=== PATIENT | male | born 1965 | race Caucasian/White ===

== ENCOUNTER 2016-12-09 21:15 | Emergency (ER) | payer OTHER ==
[~2016-12-09] VITALS: Ht 182.2 cm; Wt 104.5 kg
[2016-12-09 21:17] VITALS: BP 133/75; PULSE 97; O2SAT 97
--- NOTE | 2016-12-09 21:45 | ED.REPORT ---
HPI-Allergic Reaction Date of Service Dec 09, 2016 ED Provider: Jovany Lynn DO A 51 year old male with no pertinent medical history presents to the ED following a bee sting to the left lower extremity that occurred yesterday but become increasingly painful 4 hours prior to arrival. The patient states that he was stung by a bee yesterday afternoon and since onset the area has become increasingly swollen, red and painful with clear drainage. The patient has been taking ibuprofen and Bendaryl intermittently with no relief. Last dose of Benadryl was 5 hours prior to arrival. He denies any similar reactions previously. Patient denies any recent angioedema, difficulty swallowing, difficulty speaking, throat swelling, diffuse rash or vomiting. Nursing Notes Stated Complaint: BEE STING, ALLERGIC REACTION Chief Complaint: Allergic Reaction Nursing Notes Reviewed: Yes Allergies: Coded Allergies: Sulfa (Sulfonamide Antibiotics) (Verified Allergy, Unknown, hives, 12/09/16 ) Scheduled Cetirizine HCl (Zyrtec) 10 Mg Capsule 10 MG PO DAILY Doxycycline Hyclate (Doxycycline Hyclate) 100 Mg Capsule 100 MG PO BID Famotidine (Pepcid) 40 Mg Tablet 40 MG PO DAILY Prednisone (PredniSONE) 20 Mg Tablet 40 MG PO DAILY General Time Seen by MD: 21:38 Chief Complaint Allergic reaction Hx Obtained From: Patient Arrived By: Walk-in Onset Occurred: Yesterday Context of Onset: Insect bite/sting Symptom Duration: Since onset Progression Since Onset: Gradually worsening Location: : Leg left Quality: Painful Severity: Current: Mild Severity: Maximum: Moderate Associated with: Denies: Difficulty speaking, Difficulty swallowing, Throat swollen, Vomiting Pertinent Negative: Pt denies other symptoms Recent Healthcare: No recent doctor visit, No recent hospitalization Similar Sx Previous: No Past Medical History Past Medical History Varicose veins Past Surgical History None reported. Smoking History Never Smoker Social History Other Social History: Good social support, Local resident Ambulatory Status Independent Review of Systems Denies difficulty speaking Denies angioedema + red, swollen, painful blister to LLE Ears / Nose / Throat: Denies: Throat swelling Respiratory: Denies: Shortness of breath GI: Denies: Vomiting Skin: Denies Rash Complete sys rev & neg: except as marked. Physical Exam Initial Vital Signs Vital Signs (First) Date Time Temp Pulse Resp B/P Pulse Ox O2 Delivery O2 Flow Rate FiO2 12/09/16 21:17 37.0 97 133/75 97 Initial VS: Reviewed Neck: Supple, Non-tender, Full range of motion Extremities: Vascular intact, Neuro intact, No swelling, No tenderness Neurologic: Alert, Oriented, Nonfocal Psychiatric: Mood/affect normal, Behavior normal, Normal thought content General/Constitutional: Awake, Alert, No acute distress, Well appearing Respiratory / Chest: Atraumatic, Breath sounds NL, Breath sounds = bilat, No respiratory distress Cardiovascular: Heart rate NL, Regular rhythm, Heart sounds NL Skin: Atraumatic, Warm, Dry BLISTER: 15cm area of mild warmth and mild erythema to the posterior left lower extremity. 3cm x 2 cm area of blistering present to the posterior left calf. Head / Eyes: Atraumatic, Normocephalic, PERRL ENT: Atraumatic, Airway patent, Mucous membranes moist, Pharynx NL Mouth: Negative: Angioedema present..., Lip swelling present, Tongue abnormal Abdomen: Atraumatic, Soft Re-Eval/Medical Decision Med Decision/Clinical Course Localized allergic reaction without signs of overt cellulitis or anaphylaxis at this time however given his clinical history he'll be started on doxycycline for prophylaxis of cellulitis and given an EpiPen as well as prednisone, Pepcid, Zyrtec and [id number] Benadryl. Return precautions given. Re-Evaluation/Progress : Time of Eval: 22:10 Re-Evaluation/Progress Note: The patient is informed of his reassuring examination. He is agreeable to discharge with presciptions to help control swelling, redness and pain. Requests Epi Pain in case of severe allergic reaction. Counseled Regarding: Diagnosis, Lab results, Need for follow-up, When/why to return to ED Discharge & Departure Primary Impression: Allergic reaction Encounter type: initial encounter Qualified Code: T78.40XA - Allergy, unspecified, initial encounter Disposition: Home Discharge Condition All VS Reviewed: Yes Condition: Improved Patient Instructions: General Allergic Reaction (ED) Additional Instructions: Thank you for trusting us with your care this evening. Your emergency department evaluation today is reassuring that there is no emergent cause for concern at this time and I believe your symptoms are due to an allergic reaction. Take the full course of doxycycline as directed. Take prednisone as directed for the next 5 days. Take Zertec as directed to help reduce the inflammation to the area. Apply Benadryl cream to the affected area as directed. Use Epi pen if you begin to experience any difficulty breathing, vomiting, passing out or significant swelling in your throat. Schedule a follow up appointment with your primary care physician in the next 1- 2 days for a recheck. Please return to the emergency department for any new or worsening symptoms including any increased pain, swelling redness, difficultly breathing, fever, chills, nausea, vomiting, weakness, numbness/tingling in the leg or any other symptoms of concern to you. Referrals: Samantha Sorto Attestation Portions of this note were transcribed by Kristan Albert. I, Dr. Krzysztof Hinds personally performed the history, physical exam and medical decision-making; I reviewed and confirmed the accuracy of the information in the transcribed note. Signed by Shade Dick, 12/09/16. Jovany Lynn DO Dec 09, 2016 21:45 KRISTAN ALBERT Dec 09, 2016 21:53
[2016-12-09] MEDS ORDERED: predniSONE 20 mg Tablet PO ONE (21:50)
[2016-12-09] MEDS ORDERED: PRE20 PO (22:11)
[2016-12-09] MEDS ORDERED: DOXY100C2 PO (22:11)
[2016-12-09] MEDS ORDERED: CETI10CA PO (22:11)
[2016-12-09] MEDS ORDERED: FAMO40TA72 PO (22:11)
== END 2016-12-09 22:38 | disposition home or self-care (01) ==
LOC: SED 21:15
DX: T63.441A Toxic effect of venom of bees, accidental (unintentional), initial encounter (principal); M79.89 Other specified soft tissue disorders; Y93.89 Activity, other specified; Y92.89 Other specified places as the place of occurrence of the external cause; Y99.8 Other external cause status; Z88.2 Allergy status to sulfonamides